=== PATIENT | female | born 2000 | race Caucasian/White ===

== ENCOUNTER 2020-01-06 03:22 | Inpatient (IN) | payer MEDICAID ==
[~2020-01-06] VITALS: Ht 157.5 cm; Wt 69.5 kg
[2020-01-06] MEDS ORDERED: LIDOCAINE 1%, 20ML ONE (03:51)
[2020-01-06] MEDS ORDERED: OXYTOCIN 30U/ 0.9% NaCL 500ML 500 ML ONE (03:51)
[2020-01-06] MEDS ORDERED: MISOPROSTOL 200 MCG TABLET ONE (03:52)
[2020-01-06] MEDS ORDERED: OXYTOCIN 30U/ 0.9% NaCL 500ML 500 ML IV ONE (04:09)
[2020-01-06] MEDS ORDERED: LACTATED RINGERS 1,000 ML IV SCH ×2 (04:09→05:09)
[2020-01-06] MEDS ORDERED: OXYTOCIN 30U/ 0.9% NaCL 500ML 500 ML IV PRN (04:09)
[2020-01-06] MEDS ORDERED: D5%-LACTATED RINGERS 1,000 ML IV SCH (04:09)
[2020-01-06] MEDS ORDERED: FENTANYL/BUPIV./NS/PF 250 ML EPIDCONT SCH ×2 (04:17→05:09)
[2020-01-06] MEDS ORDERED: FENTANYL PF 100 MCG/2ML IVPush PRN (04:30)
[2020-01-06] MEDS ORDERED: TERBUTALINE 1 MG/ML, 1ML IVPush PRN (04:30)
[2020-01-06] MEDS ORDERED: TERBUTALINE 1 MG/ML, 1ML SQ PRN (04:30)
[2020-01-06] MEDS ORDERED: FENTANYL PF 500 MCG, BUPIVACAINE/PF 0.5%, 30ML 62.5 ML in SODIUM CHLORIDE 0.9% 177.5 ML EPIDCONT SCH (04:30)
[2020-01-06] MEDS ORDERED: FENTANYL PF 100 MCG/2ML IV PRN (04:30)
[2020-01-06] MEDS ORDERED: ONDANSETRON 2MG/ML, 2ML IVPush PRN (04:30)
[2020-01-06 04:44] LABS: MEAN CORPUSCULAR HEMOGLOBIN 29.7 pg (27.0-34.8); MEAN CORPUSCULAR HGB CONC 33.8 g/dL (32.4-35.8); MEAN CORPUSCULAR VOLUME 87.9 fL (80-100); MEAN PLATELET VOLUME 7.6 fL (7.4-10.4); PLATELET COUNT 349 x10^3/uL (130-400); RED BLOOD COUNT 4.24 x10^6/uL (3.82-5.3); RED CELL DISTRIBUTION WIDTH 13.5 % (9.6-15.2)
[2020-01-06] MEDS ORDERED: BUPIVACAINE 0.25% ONE (05:10)
[2020-01-06] MEDS ORDERED: LACTATED RINGERS 1,000 ML IVBOLUS PRN (05:30)
[2020-01-06] MEDS ORDERED: NALOXONE 0.4 MG/ML, 1ML IVPush PRN (05:30)
[2020-01-06] MEDS ORDERED: EPHEDRINE 50 MG/ML, 1ML IVPush PRN (05:30)
[2020-01-06 05:58] LABS: BASOPHILS # (AUTO) 0.03 x10^3/uL (0-0.3); BASOPHILS % (AUTO) 0 % (0-1); EOSINOPHILS % (AUTO) 0 % (1-7); LYMPHOCYTES # (AUTO) 1.34 x10^3/uL (1-6.1); LYMPHOCYTES % (AUTO) 9 % (22-44); MD SCAN; MONOCYTES # (AUTO) 0.13 x10^3/uL (0-1.4); MONOCYTES % (AUTO) 1 % (2-9); NEUTROPHILS # (AUTO) 14.14 x10^3/uL (1.8-8.0); NEUTROPHILS % (AUTO) 90 % (42-75)
[2020-01-06] MEDS ORDERED: ONDANSETRON 2MG/ML, 2ML ONE (09:10)
[2020-01-06] MEDS: OXYTOCIN 30U/ 0.9% NaCL 500ML 500 ML IV SCH (15:15)
[2020-01-06] MEDS ORDERED: SIMETHICONE 80 MG CHEW TAB PO PRN (15:30)
[2020-01-06] MEDS ORDERED: ONDANSETRON 2MG/ML, 2ML IV PRN (15:30)
[2020-01-06] MEDS ORDERED: METHYLERGONOVINE 0.2 MG/ML IM PRN (15:30)
[2020-01-06] MEDS ORDERED: MISOPROSTOL 200 MCG TABLET PR PRN (15:30)
[2020-01-06] MEDS ORDERED: ACETAMINOPHEN 325 MG TABLET PO PRN ×2 (15:30)
[2020-01-06] MEDS ORDERED: IBUPROFEN 600 MG TABLET ONE (15:31)
[2020-01-06] MEDS: IBUPROFEN 600 MG TABLET PO PRN ×2 (15:34→21:18)
[2020-01-06] MEDS ORDERED: OXYcodone/APAP 5/325MG TABLET ONE (16:28)
[2020-01-06] MEDS ORDERED: OXYcodone/APAP 5/325MG TABLET PO ONE (16:30)
[2020-01-06 18:30] VITALS: BP 102/60
[2020-01-06 20:00] VITALS: BP 105/65
[2020-01-06] MEDS ORDERED: OXYcodone IR 5MG TABLET PO PRN (20:00)
[2020-01-06] MEDS: DOCUSATE 100 MG CAPSULE PO PRN (21:19)
[2020-01-06 23:45] VITALS: BP 107/60
[2020-01-07] MEDS: OXYTOCIN 30U/ 0.9% NaCL 500ML 500 ML IV SCH ×3 (01:15→21:15)
[2020-01-07 04:00] VITALS: BP 104/62
[2020-01-07] MEDS: IBUPROFEN 600 MG TABLET PO PRN ×2 (09:14→20:56)
[2020-01-07] MEDS: DOCUSATE 100 MG CAPSULE PO PRN (09:14)
[2020-01-07] MEDS: PRENATAL VIT/IRON/FA 1 EACH TABLET PO SCH (09:14)
[2020-01-07 09:23] LABS: BASOPHILS # (AUTO) 0.01 x10^3/uL (0-0.3); BASOPHILS % (AUTO) 0 % (0-1); EOSINOPHILS # (AUTO) 0.08 x10^3/uL (0-0.8); EOSINOPHILS % (AUTO) 1 % (1-7); LYMPHOCYTES # (AUTO) 1.98 x10^3/uL (1-6.1); LYMPHOCYTES % (AUTO) 13 % (22-44); MD NO; MEAN CORPUSCULAR HEMOGLOBIN 29.3 pg (27.0-34.8); MEAN CORPUSCULAR HGB CONC 33.3 g/dL (32.4-35.8); MEAN CORPUSCULAR VOLUME 87.9 fL (80-100); MEAN PLATELET VOLUME 6.9 fL (7.4-10.4); MONOCYTES # (AUTO) 0.86 x10^3/uL (0-1.4); MONOCYTES % (AUTO) 6 % (2-9); NEUTROPHILS % (AUTO) 80 % (42-75); PLATELET COUNT 299 x10^3/uL (130-400); RED BLOOD COUNT 3.85 x10^6/uL (3.82-5.3); RED CELL DISTRIBUTION WIDTH 13.9 % (9.6-15.2)
[2020-01-07 09:30] VITALS: BP 98/64
[2020-01-07 13:00] VITALS: BP 97/57
[2020-01-07 20:00] VITALS: BP 93/56
[2020-01-08] MEDS: IBUPROFEN 600 MG TABLET PO PRN ×2 (08:29→15:35)
[2020-01-08] MEDS: PRENATAL VIT/IRON/FA 1 EACH TABLET PO SCH (08:29)
[2020-01-08 08:30] VITALS: BP 100/62
[2020-01-08] MEDS: DOCUSATE 100 MG CAPSULE PO PRN (08:30)
[2020-01-08] MEDS ORDERED: IBUP200T49 PO (11:17)
== END 2020-01-08 16:00 | disposition home or self-care (01) | DRG 807 ==
LOC: LDOP 03:22 → LDIP 04:01 → 2NW 17:44
PROVIDERS: ADMIT Obstetrics & Gynecology; ATTEND Obstetrics & Gynecology
PROC: 10E0XZZ Delivery of Products of Conception, External Approach (ICD-10-PCS; principal; 2020-01-06)
PROC: 3E0R3BZ Introduction of Anesthetic Agent into Spinal Canal, Percutaneous Approach (ICD-10-PCS; 2020-01-06)
PROC: 00HU33Z Insertion of Infusion Device into Spinal Canal, Percutaneous Approach (ICD-10-PCS; 2020-01-06)
PROC: 10907ZC Drainage of Amniotic Fluid, Therapeutic from Products of Conception, Via Natural or Artificial Opening (ICD-10-PCS; 2020-01-06)
DX: O77.0 Labor and delivery complicated by meconium in amniotic fluid (principal); Z37.0 Single live birth; Z3A.39 39 weeks gestation of pregnancy; O99.284 Endocrine, nutritional and metabolic diseases complicating childbirth; E03.9 Hypothyroidism, unspecified; O69.81X0 Labor and delivery complicated by cord around neck, without compression, not applicable or unspecified
CPT/HCPCS: 36415; S0020; 82803; 85025; 86592; 86850; 86900; G0378; J2405; J3010; J7050; J7120